=== PATIENT | female | born 1955 | race Caucasian/White ===

== ENCOUNTER 2020-06-23 12:28 | Outpatient (REF) | payer OTHER, SELFPAY | END 2020-06-23 12:29 | disposition home or self-care (01) | LOC: HO.LAB 12:28 | PROVIDERS: Visit Provider Internal Medicine | DX: Z20.822 Contact with and (suspected) exposure to COVID-19 (principal) | CPT/HCPCS: 36415; C9803; U0003 ==

== ENCOUNTER 2020-08-11 12:46 | Outpatient (REF) | payer OTHER, SELFPAY ==
--- NOTE | ~2020-08-11 | MM_ITS ---
EXAMINATION: MM SCREENING DIGITAL BREAST TOMOSYNTHESIS, BILATERAL CLINICAL INFORMATION: Screening. Asymptomatic. The lifetime risk of breast cancer based on the Tyrer-Cuzick Model is 4%. COMPARISON: Mammography: 08/06/2019, 03/29/2018, 01/26/2017 TECHNIQUE: Digital breast tomosynthesis is performed in both the craniocaudal and mediolateral oblique views along with computer-aided detection (CAD). Synthesized 2D images are generated from the tomosynthesis. FINDINGS: There are scattered areas of fibroglandular density (ACR BI-RADS breast composition Category b). There are no significant masses, abnormal calcifications, or other abnormalities. There is stable nodule posterior outer right breast, likely intraparenchymal node. There are some scattered benign calcifications and vascular calcifications. MM/MM tomosynthesis screening BI IMPRESSION: No mammographic evidence of malignancy. ASSESSMENT: BI-RADS 2: Benign RECOMMENDATION: Routine annual mammography screening. This patient's information was entered into a reminder system with a target due date for their next mammogram.
== END 2020-08-11 12:47 | disposition home or self-care (01) ==
LOC: HO.MAMMO 12:46
PROVIDERS: PCP Internal Medicine; Visit Provider Internal Medicine
DX: Z12.31 Encounter for screening mammogram for malignant neoplasm of breast (principal)
CPT/HCPCS: 77063; 77067

== ENCOUNTER 2021-04-16 11:15 | Outpatient (REF) | payer OTHER, SELFPAY | END 2021-04-16 11:16 | disposition home or self-care (01) | LOC: HO.LAB 11:15 | PROVIDERS: PCP Internal Medicine; Visit Provider Internal Medicine | DX: Z20.822 Contact with and (suspected) exposure to COVID-19 (principal) | CPT/HCPCS: C9803; U0003; U0005 ==

== ENCOUNTER 2021-08-10 14:16 | Outpatient (REF) | payer OTHER, SELFPAY ==
[2021-08-10 14:46] LABS: COVID-19 Test Negative (Negative); IDNOW Serial# 08D9AD1C
== END 2021-08-10 14:17 | disposition home or self-care (01) ==
LOC: HO.LAB 14:16
PROVIDERS: Visit Provider Internal Medicine
DX: Z20.822 Contact with and (suspected) exposure to COVID-19 (principal)
CPT/HCPCS: 87635; C9803

== ENCOUNTER 2021-08-28 11:10 | Emergency (ER) | payer OTHER, SELFPAY ==
[2021-08-28 11:25] VITALS: BP 151/95; PULSE 69; RESP 18; TEMP 37.1; O2SAT 100; BMI 29.5
--- NOTE | 2021-08-28 11:59 | ED.EXTPRO ---
HPI - Extremity Problem General Chief complaint: Extremity Injury, Upper Stated complaint: Bursitis L shoulder Time Seen by Provider: 08/28/21 11:59 Source: patient Mode of arrival: ambulatory Limitations: no limitations History of Present Illness HPI Narrative: Patient is a 65 year old female presenting to the emergency department today with left shoulder pain. Patient states that she has a history of bursitis and called her PCP for a joint injection but they told her they couldn't do it and she should come here. Patient denies any new injury to the area. Patient denies taking anything for the pain. Patient denies any numbness, tingling, dizziness, lightheadedness, abdominal pain, nausea, vomiting, fever, chills, blurry vision, double vision, loss of vision, chest pain, difficulty breathing, shortness of breath, back pain, night sweats, pain with urination, increased urinary frequency, increased urinary urgency, blood in her urine or stool, syncope or a near syncopal episode, recent trauma or falls, bowel incontinence, bladder incontinence, bowel retention, bladder retention, or any other complaints at this time. MD Complaint: joint pain Onset (ago): day(s) Pain Consistency: constant Location: left Severity scale (1-10): 3 Quality: dull Radiation: none Relieving factors: nothing Exacerbating factors: nothing Associated symptoms: denies other symptoms Related Data Allergies Allergy/AdvReac Type Severity Reaction Status Date / Time No Known Allergies Allergy Verified 08/28/21 11:25 Review of Systems Constitutional: Constitutional: Reports no additional constitutional complaints, Denies chills, Denies fever(s) and Denies night sweats Eyes: Eyes: Reports no additional eye complaints, Denies blurry vision, Denies change in vision, Denies diplopia, Denies eye discharge, Denies loss of vision and Denies eye pain ENT: Denies dizziness Cardiovascular: Cardiovascular: Reports no additional cardiovascular complaints, Denies chest pain, Denies lightheadedness, Denies Loss of Consciousness and Denies dyspnea Respiratory: Respiratory: Reports no additional respiratory complaints and Denies dyspnea Gastrointestinal: Gastrointestinal: Reports no additional gastrointestinal complaints, Denies abdominal pain, Denies melena, Denies hematochezia, Denies change in bowel habits and Denies change in stool character Genitourinary: Genitourinary: Denies hematuria, Denies urinary frequency, Denies dysuria, Denies urinary incontinence, Denies urinary hesitancy and Denies urinary urgency Musculoskeletal: Musculoskeletal: Reports no additional musculoskeletal complaints, Denies numbness and Denies tingling Comments: left shoulder pain Neurologic: Denies dizziness, Denies loss of vision, Denies numbness and Denies tingling Psychiatric: Psychiatric: Reports no additional psychiatric complaints Endocrine: Endocrine: Reports no additional endocrine complaints Hematologic/Lymphatic: Hematologic/Lymphatic: Reports no additional hematologic/lymphatic complaints Allergic/Immunologic: Allergic/Immunologic: Reports no additional allergic/immunologic complaints PMFSH Past Medical History Attestation statement: The following information was validated with the patient. Source: old records reviewed Social History Social History Advance Directives: No Physical Exam Vital Signs: Vital Signs: Last Vital Signs Temp 98.7 F 08/28/21 11:25 Pulse 69 08/28/21 11:25 Resp 18 08/28/21 11:25 BP 151/95 H 08/28/21 11:25 Pulse Ox 100 08/28/21 11:25 BMI result Body Mass Index 29.5 Const: General: cooperative, no acute distress, alert and awake Nutritional Appearance: well nourished Orientation/consciousness: patient oriented x3 Limitations: no limitations HEENT: Head: Yes normal to inspection and Yes atraumatic Ears: hearing grossly normal bilaterally and external ears normal General nose exam: Normal external nose present, no nasal discharge noted and no epistaxis Face and sinus: Yes normal facial exam, No abrasion and No laceration Mouth: Normal oral and palatal mucosa present, no drooling and no muffled voice Eyes: General: appearance normal, both eyes and all related structures Periorbital: periorbital findings normal Eyelids: Yes eyelids normal Conjunctivae: conjunctivae normal Pupils: Equal, round and reactive pupils present EOM: EOMs intact bilaterally Neck: Neck: Yes normal visual inspection, Yes full ROM and Yes no lymphadenopathy Chest: Chest palpation & inspection: normal inspection of the chest Resp: Effort & Inspection: normal respiratory effort and able to speak in complete sentences Auscultation: clear to auscultation bilaterally Cardio: Rate: regular rate Rhythm: regular rhythm GI: Inspection: Yes normal to inspection Neuro: General: patient oriented x3 and moves all extremities Cranial nerves: Yes Equal, round and reactive pupils present Cognition (Neuro): normal cognition Motor exam (neuro): 5/5 motor strength present throughout Sensory Exam: Normal double simultaneous stimulation for sensation Coordination: [id number] test normal Extrem: General: Yes normal to inspection, Yes full ROM and Yes capillary refill normal Psych: Appearance: grossly normal Mental Status: mental status grossly normal Affect: normal affect Attitude: cooperative Thought process: Normal thought process present Thought content: Normal thought content present Insight: Good insight present (Psych) MDM - Extremity (Nontraumatic) MDM Narrative Medical decision making narrative: Patient is a 65 year old female presenting to the emergency department today with left shoulder pain. Patient's physical exam was unremarkable. Patient's ROM, circulation, strength, and sensation were intact to the entire left upper extremity. I explained my physical exam findings to the patient. I answered all questions asked by the patient. I spoke to the orthopedic PA Cindy who stated they did not have space in their schedule to perform a cortisone injection. She recommended the patient take OTC Tylenol and follow up outpatient. I stressed the importance of the patient taking her medication as prescribed. I stressed the importance of the patient following up with her primary care provider and an orthopedist. I stressed the importance of the patient returning to the emergency department immediately if her symptoms were to worsen or if she were to develop any dizziness, shortness of breath, difficulty breathing, chest pain, blurry vision, loss of vision, nausea, vomiting, abdominal pain, fever, chills, back pain, or any other complaints. Patient verbalized agreement and understanding with this treatment plan and discharge. Differential Diagnosis Differential diagnosis: Unlikely gout (shoulder pain, burisitis) Medical Records Attestation: I reviewed the patient's medical records. Discharge Plan Discharge Clinical Impression: Bursitis Patient Disposition: Home, Self-Care Instructions: Shoulder Bursitis (ED) Additional Instructions: Take Tylenol for the pain. Do NOT sling the arm or restrict movement, this could lead to a frozen shoulder. Follow up with your primary care provider. Return to the emergency department immediately if your symptoms worsen or if you develop any dizziness, shortness of breath, difficulty breathing, chest pain, blurry vision, loss of vision, nausea, vomiting, abdominal pain, fever, chills, back pain, or any other complaints. Referrals: Bassem Otero III, MD [Primary Care Provider] - 2 days Davi Whelan MD [Physician] - 2 days Interventions: ED Discharge Assessment Last Done: 08/28/21 12:34 Print Language: Yakut
== END 2021-08-28 12:35 | disposition home or self-care (01) ==
PROVIDERS: Emergency Provider Emergency Medicine; PCP Internal Medicine
DX: M75.52 Bursitis of left shoulder (principal); M25.512 Pain in left shoulder
CPT/HCPCS: 99282; 99283

== ENCOUNTER 2021-12-25 05:13 | Emergency (ER) | payer OTHER, SELFPAY ==
--- NOTE | 2021-12-25 | ECG_ITS ---
Test Reason : HIGH BP Blood Pressure : / mmHG Vent. Rate : 068 BPM Atrial Rate : 068 BPM P-R Int : 162 ms QRS Dur : 076 ms QT Int : 418 ms P-R-T Axes : 000 004 034 degrees QTc Int : 444 ms Normal sinus rhythm Normal ECG When compared with ECG of 09-NOV-2017 09:40, No significant change was found Referred By: Generic ED Physician Electronically Signed By:CAMRYN CORTEZ
--- NOTE | ~2021-12-25 | XR_ITS ---
EXAMINATION: XR CHEST CLINICAL INFORMATION: Cough COMPARISON: 11/09/2017 TECHNIQUE: Frontal view of the chest was obtained. FINDINGS: Normal symmetric lung volumes. No parenchymal consolidation. No pleural effusion. No pneumothorax. Cardiomediastinal silhouette and pulmonary vascularity are within normal limits. Aorta is tortuous and atherosclerotic. No acute osseous abnormalities. XR/XR chest 1V IMPRESSION: No acute findings
[2021-12-25 05:33] VITALS: BP 219/122; PULSE 71; RESP 18; TEMP 36.7; O2SAT 97; BMI 32.7
[2021-12-25 05:35] VITALS: BP 201/89
[2021-12-25 05:52] LABS: Strep A Nucleic Acid Negative (Negative)
[2021-12-25 06:03] LABS: COVID-19 Test Negative (Negative); IDNOW Serial# 16C4AD1C; Influenza A Negative (Negative); Influenza B2 Negative (Negative)
[2021-12-25 06:08] VITALS: O2SAT 98
--- NOTE | 2021-12-25 06:18 | PC.NURSE ---
Pt. with HTN d/t not taking home meds. Reviewed pt.'s exernal med. list and passed on to Angelo Pan MD to re-order home meds.
--- NOTE | 2021-12-25 07:46 | ED_ITS ---
HPI - General Adult General Chief complaint: Upper Respiratory Symptoms Stated complaint: sore throat, unable to swalloq, ear pain Time Seen by Provider: 12/25/21 07:42 Source: patient Mode of arrival: ambulatory History of Present Illness HPI narrative: 66-year-old female with history hypertension presents with 1 week of nasal congestion, sore throat, cough as well as bilateral ear discomfort and watery eyes. Otherwise, she denies any fever, chills, GI or symptoms denies any chest pain/palpitations, or shortness of breath. Related Data Allergies Allergy/AdvReac Type Severity Reaction Status Date / Time No Known Allergies Allergy Verified 12/25/21 05:32 Review of Systems Review of Systems: Pertinent positives and negatives as stated in HPI 10 point review of systems is otherwise negative. PMFSH Past Medical History Source: nursing notes reviewed Social History Social History Alcohol intake: never Patient Tobacco Use Status: Never used Tobacco Use of substances other than those prescribed or required for medical reasons: No Advance Directives: No Advance Directives Information Provided: Yes Physical Exam ED Vital Signs: Vital Signs - 24 hr 12/25/21 05:33 12/25/21 05:35 12/25/21 06:08 Temperature 98.1 F Pulse Rate 71 Respiratory Rate 18 Blood Pressure 219/122 H 201/89 H Pulse Oximetry 97 98 Oxygen Delivery Method Room Air Room Air BMI result Body Mass Index 32.7 VITAL SIGNS: Reviewed. GENERAL: Well developed, well nourished, in no acute distress. HEAD: Normocephalic/atraumatic EYES: PERRLA, EOMI, bilateral conjunctival injection, clear watery EARS: Ext canals without abnormality, TMs non-bulging and non-erythematous NOSE: Nares congestion with bilateral boggy turbinates OROPHARYNX: no oral lesions noted, posterior pharynx clear and erythematous without noted tonsillar enlargement/erythema/exudates NECK: Supple, no adenopathy LUNGS: Normal breath sounds. No adventitious sounds or accessory muscle use. SpO2<97> CARDIOVASCULAR: Regular rate and rhythm without noted murmurs, no JVD or lower extremity edema. ABDOMEN: Soft, non-tender, non-distended with bowel sounds. MUSCULOSKELETAL: No tenderness, deformities, or effusions noted on gross inspection. EXTREMITIES: No cyanosis, clubbing or edema. SKIN: Inspection of the skin reveals no rashes NEUROLOGIC: Alert and oriented x 4. Strength and sensation to light touch were grossly intact x 4. Course Course Course Narrative: 66-year-old female with history and clinical presentation suggestive of allergic rhinitis with postnasal drip and possible combination of viral syndrome. Patient is also noted to be hypertensive in on review of all investigations there are no acute findings. Patient received Cepacol for her sore throat as well as 5 mg of Norvasc for her blood pressure. On re-evaluation patient reports significant improvement of her throat symptoms with the Cepacol. Medical Decision Making Lab Data Result diagrams: 12/25/21 07:59 12/25/21 07:59 Labs: Lab Results 12/25/21 12/25/21 12/25/21 Range/Units 05:34 05:34 05:34 WBC (4.8-10.8) X10*3/uL RBC (4.20-5.50) X10*6/uL Hgb (12.0-16.0) g/dl Hct (37.0-47.0) % MCV (80.0-98.0) fL MCH (27.0-33.0) pg MCHC (31.0-35.0) g/dl RDW (11.0-16.0) % Plt Count (160-400) X10*3/uL MPV (9.4-12.3) fL Immature Gran % (Auto) (0.0-0.4) % Neut % (Auto) (45-73) % Lymph % (Auto) (20-40) % Cecil % (Auto) (2-11) % Eos % (Auto) (0-4) % Baso % (Auto) (0-2) % Lymph # (Auto) (1.2-4.9) X10*3/uL Cecil # (Auto) (0.1-1.2) X10*3/uL Eos # (Auto) (0.0-0.4) X10*3/uL Baso # (Auto) (0.0-0.2) X10*3/uL Abs Immat Gran (auto) (0.00-0.03) X10*3/uL Absolute Neuts (auto) (2.0-8.3) x10*3/uL Absolute Nucleated RBC (0.0-0.012) X10*3/uL Nucleated RBC % (auto) (0.0-0.2) /100WBC Sodium (135-145) mmol/L Potassium (3.3-5.1) mmol/L Chloride (96-108) mmol/L Carbon Dioxide (22-29) mmol/L Anion Gap (12-20) BUN (9-16) mg/dL Creatinine (0.5-1.4) mg/dL Estim Creat Clear Calc Estimated GFR Random Glucose (60-115) mg/dL Calcium (8.4-10.2) mg/dL Total Bilirubin (0.0-1.0) mg/dL AST (5-31) U/L ALT (0-31) U/L Alkaline Phosphatase (39-117) U/L Total Protein (6.5-8.0) g/dL Albumin (3.5-5.0) g/dL COVID-19 (ASIA) Negative (Negative) COVID-19 Clin Com See Note Influenza Type A (LAEX) Negative (Negative) Influenza Type B (ALEX) Negative (Negative) Influenza A & B Note See Note S. pyogenes GrpA ALEX Negative (Negative) 12/25/21 12/25/21 Range/Units 07:59 07:59 WBC 6.8 (4.8-10.8) X10*3/uL RBC 4.70 (4.20-5.50) X10*6/uL Hgb 13.6 (12.0-16.0) g/dl Hct 41.6 (37.0-47.0) % MCV 88.5 (80.0-98.0) fL MCH 28.9 (27.0-33.0) pg MCHC 32.7 (31.0-35.0) g/dl RDW 14.2 (11.0-16.0) % Plt Count 252 (160-400) X10*3/uL MPV 9.1 L (9.4-12.3) fL Immature Gran % (Auto) 0.4 (0.0-0.4) % Neut % (Auto) 65.0 (45-73) % Lymph % (Auto) 25.3 (20-40) % Cecil % (Auto) 5.6 (2-11) % Eos % (Auto) 3.1 (0-4) % Baso % (Auto) 0.6 (0-2) % Lymph # (Auto) 1.7 (1.2-4.9) X10*3/uL Cecil # (Auto) 0.4 (0.1-1.2) X10*3/uL Eos # (Auto) 0.2 (0.0-0.4) X10*3/uL Baso # (Auto) 0.0 (0.0-0.2) X10*3/uL Abs Immat Gran (auto) 0.03 (0.00-0.03) X10*3/uL Absolute Neuts (auto) 4.4 (2.0-8.3) x10*3/uL Absolute Nucleated RBC 0.000 (0.0-0.012) X10*3/uL Nucleated RBC % (auto) 0.0 (0.0-0.2) /100WBC Sodium 141 (135-145) mmol/L Potassium 4.1 (3.3-5.1) mmol/L Chloride 104 (96-108) mmol/L Carbon Dioxide 28 (22-29) mmol/L Anion Gap 13 (12-20) BUN 11 (9-16) mg/dL Creatinine 0.81 (0.5-1.4) mg/dL Estim Creat Clear Calc 58.8 Estimated GFR > 60 Random Glucose 106 (60-115) mg/dL Calcium 8.8 (8.4-10.2) mg/dL Total Bilirubin 0.4 (0.0-1.0) mg/dL AST 13 (5-31) U/L ALT 10 (0-31) U/L Alkaline Phosphatase 75 (39-117) U/L Total Protein 7.1 (6.5-8.0) g/dL Albumin 4.0 (3.5-5.0) g/dL COVID-19 (ASIA) (Negative) COVID-19 Clin Com Influenza Type A (ALEX) (Negative) Influenza Type B (ALEX) (Negative) Influenza A & B Note S. pyogenes GrpA ALEX (Negative) ECG Data Attestation: I personally reviewed and interpreted this ECG as follows: Prior ECG tracings: available for review Interpretation: Normal sinus rhythm, HR-68, no STEMI, IL/QRS/QTC is within normal limits. Discharge Plan Discharge Clinical Impression: Upper respiratory infection, Sinusitis, Hypertension Patient Disposition: Home, Self-Care Instructions: Hypertension (ED), DASH Eating Plan (ED), Rhinosinusitis (ED), Upper Respiratory Infection (ED) Additional Instructions: 1. Recommend eikz-umy-ediooff Tylenol/ibuprofen as needed for any body aches or pains as well as headache. Increase fluid hydration especially with water. 2. Recommend trying vpxx-ark-[id number] allergy medications such as Claritin/Flonase. 3. Recommend auws-[id number]-uwmtryk Cepacol for your sore throat as well as using saline gargling (warm tap water mixed with table salt), gargle for 5 minutes 3 to 4 times a day. 4. Contact the office of your primary care provider today for refill on your blood pressure medication. Return to the ER for worsening symptoms. Referrals: Bassem Otero III, MD [Primary Care Provider] -
[2021-12-25] MEDS: Acetaminophen 325 MG TABLET 975 MG PO (07:50)
[2021-12-25] MEDS: amLODIPine Besylate 5 MG TABLET PO (07:50)
[2021-12-25] MEDS: Ibuprofen 400 MG TABLET PO (07:51)
[2021-12-25 08:04] LABS: MANUAL DIFF FLAG NO
[2021-12-25 08:10] LABS: Basophils Percent Auto 0.6 % (0-2); Eosinophils Absolute Auto 0.2 X10*3/uL (0.0-0.4); Eosinophils Percent Auto 3.1 % (0-4); Hematocrit 41.6 % (37.0-47.0); Hemoglobin 13.6 g/dl (12.0-16.0); Imm Gran Abs Auto 0.03 X10*3/uL (0.00-0.03); Imm Gran Pct Auto 0.4 % (0.0-0.4); Lymphocytes Absolute Auto 1.7 X10*3/uL (1.2-4.9); Lymphocytes Percent Auto 25.3 % (20-40); Mean Corpuscular HGB Conc 32.7 g/dl (31.0-35.0); Mean Corpuscular Hemoglobin 28.9 pg (27.0-33.0); Mean Corpuscular Volume 88.5 fL (80.0-98.0); Mean Platelet Volume 9.1 fL (9.4-12.3); Monocytes Absolute Auto 0.4 X10*3/uL (0.1-1.2); Monocytes Percent Auto 5.6 % (2-11); Neutrophils Absolute Auto 4.4 x10*3/uL (2.0-8.3); Platelet Count 252 X10*3/uL (160-400); Red Cell Distribution Width 14.2 % (11.0-16.0); White Blood Count 6.8 X10*3/uL (4.8-10.8)
[2021-12-25 08:25] LABS: Alanine Aminotransferase 10 U/L (0-31); Alkaline Phosphatase 75 U/L (39-117); Anion Gap 13 (12-20); Aspartate Amino Transferase 13 U/L (5-31); Bilirubin Total 0.4 mg/dL (0.0-1.0); Blood Urea Nitrogen 11 mg/dL (9-16); Calcium 8.8 mg/dL (8.4-10.2); Carbon Dioxide 28 mmol/L (22-29); Chloride 104 mmol/L (96-108); Creatinine Clr Calc Pharmacy 58.8; Estimated Glomerular Filt Rate > 60; Glucose Random 106 mg/dL (60-115); Potassium 4.1 mmol/L (3.3-5.1); Sodium 141 mmol/L (135-145); Total Protein 7.1 g/dL (6.5-8.0)
[2021-12-25 09:59] VITALS: BP 177/81; PULSE 62
== END 2021-12-25 10:04 | disposition home or self-care (01) ==
PROVIDERS: Emergency Provider Student in an Organized Health Care Education/Training Program; PCP Internal Medicine
DX: J06.9 Acute upper respiratory infection, unspecified (principal); J32.9 Chronic sinusitis, unspecified; I10 Essential (primary) hypertension; J02.9 Acute pharyngitis, unspecified; Z20.822 Contact with and (suspected) exposure to COVID-19
CPT/HCPCS: 36415; 71045; 80053; 85025; 87502; 87635; 87651; 93005; 99283; 99285

== ENCOUNTER 2023-10-22 13:38 | Inpatient (IN) | payer MEDICARE, OTHER, SELFPAY ==
[2023-10-22] VITALS (8 sets, daily range): BP systolic 174–231; BP diastolic 89–111; PULSE 63–93; RESP 15–18; TEMP 36.9; O2SAT 97–100; BMI 34.8
--- NOTE | ~2023-10-22 | XR_ITS ---
EXAMINATION: XR CHEST CLINICAL INFORMATION: Chest pain COMPARISON: Prior chest November 2021 TECHNIQUE: 2 views of the chest were obtained. FINDINGS: No significant abnormality is noted involving the heart, lungs, mediastinum, bony thorax or soft tissues. XR/XR chest 2V IMPRESSION: Unremarkable examination.
--- NOTE | ~2023-10-22 | CT_ITS ---
EXAMINATION: CT HEAD WITHOUT CONTRAST CLINICAL INFORMATION: Headache COMPARISON: CT head October 2009 TECHNIQUE: Contiguous axial imaging was performed from the skull base to vertex without intravenous administration of contrast. This CT examination was performed using dose optimization techniques as appropriate, variously including the following: *Automated exposure control *Adjustment of mA and/or kV according to patient size (this includes techniques or standardized protocols for targeted exams where dose is matched to indication/reason for exam; i.e. extremities or head) *Use of iterative reconstruction technique DLP: 580 mGy-cm FINDINGS: There is no mass hemorrhage or cerebral edema. Ventricles and basal cisterns normal. Bone and soft tissues normal. Sinuses clear. Mastoid air cells clear. CT/CT head/brain wo IV con IMPRESSION: No acute intracranial pathology.
--- NOTE | 2023-10-22 13:59 | ED.GENADULT ---
HPI - General Adult General Chief complaint: Chest Pain Stated complaint: high bp Time Seen by Provider: 10/22/23 18:09 Source: patient Mode of arrival: ambulatory Limitations: no limitations History of Present Illness HPI narrative: Patient's history of arthritis no history of hypertension been having mild headache and not feeling well had a cortisone shot in her right knee 3 days ago at that time blood pressure was slightly elevated in 150/90s today she was visiting her family at skilled nursing and noticed similar feeling had a blood pressure check was in 200/110 range after arrival patient's blood pressure 205/91 for last few hours patient also feeling chest tightness and heaviness prior to this patient has normal blood pressure not taking any pain medication significant family history of hypertension present according to records patient has elevated blood pressure last year also but never been started on medication as blood pressure got better also patient felt chest tightness no diaphoresis no shortness a breath Related Data Home Medications ?Medication ?Instructions ?Recorded ?Confirmed clobetasol 0.05 % topical foam 1 appl topical QD-BID PRN Itching 10/23/23 10/23/23 fluticasone propionate 50 2 spray intranasal DAILY PRN 10/23/23 10/23/23 mcg/actuation nasal Allergy Symptoms spray,suspension loratadine 10 mg tablet 10 mg PO DAILY PRN Allergy Symptoms 10/23/23 10/23/23 omeprazole 40 mg capsule,delayed 40 mg PO DAILY PRN Acid Reflux 10/23/23 10/23/23 release zolpidem 5 mg tablet 5 mg PO BEDTIME insomnia 10/23/23 10/23/23 Previous Rx's ?Medication ?Instructions ?Recorded amlodipine 5 mg tablet 5 mg PO DAILY #30 tabs 10/23/23 blood pressure monitor #1 ea 10/23/23 losartan 50 mg tablet 50 mg PO DAILY #30 tabs 10/23/23 Allergies Allergy/AdvReac Type Severity Reaction Status Date / Time No Known Allergies Allergy Verified 10/22/23 14:02 Review of Systems Review of Systems: Yes all other systems are reviewed and are negative [facility] Past Medical History Medical History (Updated 10/23/23 @ 01:33 by Julian Aldana MD) Insomnia Osteoarthritis of right knee Social History Social History Alcohol intake: never Patient Tobacco Use Status: Never used Tobacco Physical Exam ED Vital Signs: Vital Signs - 24 hr 10/22/23 13:59 10/22/23 18:08 10/22/23 18:36 Temperature 98.4 F Pulse Rate 74 63 Respiratory Rate 18 16 Blood Pressure 205/91 H 218/106 H 231/111 H Pulse Oximetry 100 98 Oxygen Delivery Method Room Air Room Air 10/22/23 18:37 10/22/23 19:21 Temperature Pulse Rate 71 93 Respiratory Rate 15 Blood Pressure 231/111 H 208/103 H Pulse Oximetry 97 Oxygen Delivery Method Room Air BMI result Body Mass Index 34.8 Appearance: Alert. Oriented X3. No acute distress. Eyes: No pallor or icterus ENT: Pharynx normal. Oral Mucosa moist Neck: Normal inspection. Neck supple. CVS: Normal heart rate and rhythm. Pulses normal. Respiratory: No respiratory distress. Equal air entry bilateral, no wheezing/rales/rhonchi Abdomen: Soft and nontender. Bowel sounds are present, no mass palpable, no CVA tenderness Skin: Skin warm and dry. Normal skin color. Normal skin turgor. Extremities: No lower extremity edema. No calf tenderness Neuro: Oriented X 3. No motor deficit. No sensory deficit.No cerebellar signs , cranial nerves II-XII intact Course Course Course Narrative: This is an RME: Additional HPI, ROS, PE not included below will be deferred to primary provider. RME assessment and note performed by: Sandrine Banks PA-C This is a 69-wslw-enl-female, with a hx of HTN, who presents to the ER with complaints of substernal chest pain and headache since this morning. Endorsing SOB. BP 205/91. Plan: Labs,EKG, UA, further ER eval needed. Medications Administered Discontinued Medications Generic Name Dose Route Start Last Admin Trade Name Freq PRN Reason Stop Dose Admin Amlodipine Besylate 5 mg 10/23/23 09:00 10/23/23 09:41 Amlodipine Besylate 5 Mg Tablet PO 5 mg DAILY LOUISE Administration Protocol Amlodipine Besylate 5 mg 10/22/23 20:13 10/22/23 20:51 Amlodipine Besylate 5 Mg Tablet PO 10/22/23 20:14 5 mg ONCE ONE Administration Protocol Enoxaparin Sodium 40 mg 10/22/23 20:00 10/22/23 20:51 Enoxaparin Sodium 40 Mg/0.4 Ml Syringe SUBCUT 40 mg Q24H LOUISE Administration Labetalol HCl 20 mg 10/22/23 18:21 10/22/23 18:37 Labetalol Hcl 100 Mg/20 Ml Vial IVPUSH 10/22/23 18:22 20 mg ONCE ONE Administration Losartan Potassium 50 mg 10/22/23 18:21 10/22/23 18:36 Losartan Potassium 50 Mg Tablet PO 10/22/23 18:22 50 mg ONCE ONE Administration Protocol Losartan Potassium 50 mg 10/23/23 09:00 10/23/23 09:41 Losartan Potassium 50 Mg Tablet PO 50 mg DAILY LOUISE Administration Protocol Sodium Chloride 3 ml 10/23/23 00:00 10/23/23 07:54 0.9 % Sodium Chloride Flush 3 Ml Syringe IVFLUSH Not Given QSHIFT [facility] Medical Decision Making Medical Decision Making [facility] Narrative: Patient with uncontrolled hypertension with similar history in the past never been on medication patient has required IV labetalol p.o. losartan will add pressure improved 2 sets of cardiac enzymes negative ACS CT scan head is negative for SAH will admit patient to medical service blood pressure Differential Diagnosis Differential Diagnoses: The differential diagnosis associated with the presentation includes Accelerated hypertension/chest pain/ACS/SDH/SAH Admission/Observation Consideration of admission/observation: Escalation of care including admission/observation considered Consult Healthcare Provider Management of the patient was discussed with: Hospitalist Lab Data [facility] Lab Attestation statement: I reviewed the patient's lab results. 10/23/23 05:44 10/23/23 05:44 Labs: Lab Results 10/22/23 10/22/23 10/22/23 Range/Units 14:23 14:24 18:29 WBC 10.0 (4.8-10.8) X10*3/uL RBC 4.74 (4.20-5.50) X10*6/uL Hgb 13.9 (12.0-16.0) g/dl Hct 40.5 (37.0-47.0) % MCV 85.4 (80.0-98.0) fL MCH 29.3 (27.0-33.0) pg MCHC 34.3 (31.0-35.0) g/dl RDW 13.6 (11.0-16.0) % Plt Count 268 (160-400) X10*3/uL MPV 9.4 (9.4-12.3) fL Immature Gran % (Auto) 0.5 H (0.0-0.4) % Neut % (Auto) 81.9 H (45-73) % Lymph % (Auto) 13.6 L (20-40) % [place] % (Auto) 3.9 (2-11) % Eos % (Auto) 0.0 (0-4) % Baso % (Auto) 0.1 (0-2) % Lymph # (Auto) 1.4 (1.2-4.9) X10*3/uL [place] # (Auto) 0.4 (0.1-1.2) X10*3/uL Eos # (Auto) 0.0 (0.0-0.4) X10*3/uL Baso # (Auto) 0.0 (0.0-0.2) X10*3/uL Abs Immat Gran (auto) 0.05 H (0.00-0.03) X10*3/uL Absolute Neuts (auto) 8.2 (2.0-8.3) x10*3/uL Absolute Nucleated RBC 0.000 (0.0-0.012) X10*3/uL Nucleated RBC % (auto) 0.0 (0.0-0.2) /100WBC PT 10.8 L (11.1-13.3) SEC INR 0.9 (0.9-1.1) APTT 27.1 (26.0-36.8) SEC D-Dimer High Sensitivty < 150 NG/ML Sodium 135 (135-145) mmol/L Potassium 3.8 (3.3-5.1) mmol/L Chloride 99 (96-108) mmol/L Carbon Dioxide 26 (22-29) mmol/L Anion Gap 14 (12-20) BUN 22 H (9-16) mg/dL Creatinine 0.87 (0.5-1.4) mg/dL Estim Creat Clear Calc 55.1 Estimated GFR > 60 Random Glucose 94 (60-115) mg/dL Calcium 9.4 D (8.4-10.2) mg/dL Magnesium 2.2 (1.6-2.6) mg/dL Total Bilirubin 0.5 (0.0-1.0) mg/dL Direct Bilirubin 0.2 (0.0-0.5) mg/dL AST 14 (5-31) U/L ALT 16 (0-31) U/L Alkaline Phosphatase 60 (39-117) U/L Troponin I High Sens < 2.7 < 2.7 (<3.5-17.0) ng/L Total Protein 7.5 (6.5-8.0) g/dL Albumin 4.2 (3.5-5.0) g/dL Lipase 23 (8-78) U/L Independent Interpretation I performed an independent interpretation of an: EKG Interpretation: Normal sinus rhythm heart rate 69 beats per minute normal interval normal axis no acute ST T wave changes no acute ischemia impression normal EKG Critical Care Time Critical Care Time Critical Care Time: Yes Total Critical Care Time: 55 Attestation: The patient was critically ill with a high probability of imminent or life threatening deterioration. I spent greater than ?60??minutes of discontinuous time evaluating the patient,delivering critical care at the bedside, discussing and evaluating pertinent data with consultants. Critical care time does not include time spent performing separately billable procedures or teaching. Total time spent performing critical care was 55???minutes. Discharge Plan Discharge Clinical Impression: Hypertensive urgency, Chest pain Patient Disposition: Home, Self-Care Discharge Date/Time: 10/23/23 11:39
--- NOTE | 2023-10-22 14:01 | ECG_ITS ---
Test Reason : CP Blood Pressure : / mmHG Vent. Rate : 069 BPM Atrial Rate : 069 BPM P-R Int : 168 ms QRS Dur : 076 ms QT Int : 394 ms P-R-T Axes : 059 008 026 degrees QTc Int : 422 ms Normal sinus rhythm Normal ECG When compared with ECG of 25-DEC-2021 05:37, T wave amplitude has increased in Anterior leads Referred By: Sandrine Banks Electronically Signed By:Balaji Hernandez
[2023-10-22 14:28] LABS: Basophils Percent Auto 0.1 % (0-2); Hematocrit 40.5 % (37.0-47.0); Hemoglobin 13.9 g/dl (12.0-16.0); Imm Gran Abs Auto 0.05 X10*3/uL (0.00-0.03); Imm Gran Pct Auto 0.5 % (0.0-0.4); Lymphocytes Absolute Auto 1.4 X10*3/uL (1.2-4.9); Lymphocytes Percent Auto 13.6 % (20-40); MANUAL DIFF FLAG NO; Mean Corpuscular HGB Conc 34.3 g/dl (31.0-35.0); Mean Corpuscular Hemoglobin 29.3 pg (27.0-33.0); Mean Corpuscular Volume 85.4 fL (80.0-98.0); Mean Platelet Volume 9.4 fL (9.4-12.3); Monocytes Absolute Auto 0.4 X10*3/uL (0.1-1.2); Monocytes Percent Auto 3.9 % (2-11); Neutrophils Absolute Auto 8.2 x10*3/uL (2.0-8.3); Neutrophils Percent Auto 81.9 % (45-73); Platelet Count 268 X10*3/uL (160-400); Red Blood Count 4.74 X10*6/uL (4.20-5.50); Red Cell Distribution Width 13.6 % (11.0-16.0)
[2023-10-22 14:42] LABS: Alanine Aminotransferase 16 U/L (0-31); Albumin Level 4.2 g/dL (3.5-5.0); Alkaline Phosphatase 60 U/L (39-117); Anion Gap 14 (12-20); Aspartate Amino Transferase 14 U/L (5-31); Bilirubin Direct 0.2 mg/dL (0.0-0.5); Bilirubin Total 0.5 mg/dL (0.0-1.0); Blood Urea Nitrogen 22 mg/dL (9-16); Calcium 9.4 mg/dL (8.4-10.2); Carbon Dioxide 26 mmol/L (22-29); Chloride 99 mmol/L (96-108); Creatinine Clr Calc Pharmacy 55.1; Estimated Glomerular Filt Rate > 60; Glucose Random 94 mg/dL (60-115); Lipase 23 U/L (8-78); Magnesium 2.2 mg/dL (1.6-2.6); Potassium 3.8 mmol/L (3.3-5.1); Sodium 135 mmol/L (135-145); Total Protein 7.5 g/dL (6.5-8.0)
[2023-10-22 14:49] LABS: Troponin-I High Sensitivity < 2.7 ng/L (<3.5-17.0)
[2023-10-22] MEDS: Losartan Potassium 50 MG TABLET PO (18:36)
[2023-10-22] MEDS: Labetalol HCL 100 MG/20 ML VIAL 20 MG IVPUSH (18:37)
[2023-10-22 18:45] LABS: INTERNATIONAL NORM RATIO 0.9 (0.9-1.1); Prothrombin Time 10.8 SEC (11.1-13.3)
[2023-10-22 18:48] LABS: Partial Thromboplastin Time 27.1 SEC (26.0-36.8)
[2023-10-22 18:55] LABS: Troponin-I High Sensitivity < 2.7 ng/L (<3.5-17.0)
--- NOTE | 2023-10-22 19:15 | PC.NURSE ---
IV established, medicated per the MAR. alert and oriented, respirations even and unlabored. call sr within reach
--- NOTE | 2023-10-22 19:29 | PC.NURSE ---
pt is axox4 resting in stretcher. bp 208/103 Dr. Aldana made aware. pt reports cp 01/06 substernal without radiation, denies other sx/pain. nsr on monitor. awaiting further orders. call sr within reach.
[2023-10-22 20:35] LABS: D Dimer High Sensitivity < 150 NG/ML
--- NOTE | 2023-10-22 20:43 | P.HPHOSP_ITS ---
History of Present Illness Date of Service: 10/22/23 Attending physician on admission: Babak Clark Chief Complaint: Headache, chest pain Pt is a 68-year-old female with a PMH significant for?insomnia and osteoarthritis in right knee who presents to the ED for evaluation of headache, chest pain, lightheadedness, and dizziness. Patient reports symptoms began 3 days prior on Tuesday when she went to Orthopedics for a cortisone shot in her right knee. At the office they noticed her blood pressure was high. On patient felt diaphoretic, had a headache, some lightheadedness and dizziness, and central chest pressure. Symptoms persisted but did not repeat her BP until earlier today when she visited her mother at a assisted and asked the nurse to check it. Found that it was 179/100. Repeat one hour later was 197/100. Called Urgent Care who told her to come to the ED for further evaluation. Patient reports she follows regularly with a PCP. States a few years ago blood pressure was also found to be elevated and she was started medication. Reports blood pressure improved on medication, though prescription apparently was never refilled and patient thought her hypertension had been resolved. In the ED pt was hypertensive up to 231/111. Labs were grossly unremarkable. No leukocytosis. Stable H&H. No significant electrolyte abnormalities. Renal and hepatic function WNL. Serial troponins negative. CXR was unremarkable with no acute cardiopulmonary disease visualized. CT?of head showed no acute intracranial pathology. EKG demonstrated normal sinus rhythm without evidence of significant ST elevations or depressions. Pt was treated with labetalol 20 mg IV and losartan 50 mg p.o. Pt will be admitted to the hospital for treatment further evaluation of hypertensive urgency. Review of Systems 2 Review of Systems: Headache Central nonradiating chest pressure Lightheadedness, dizziness Diaphoresis Denies fever, chills, nausea, vomiting, abdominal pain No shortness of or difficulty breathing [facility] Medical History (Updated 10/22/23 @ 21:33 by AWA Bird) Insomnia Osteoarthritis of right knee Social History Alcohol intake: never Patient Tobacco Use Status: Never used Tobacco Smoked in Last 30 Days: No Use of substances other than those prescribed or required for medical reasons: No Advance Directives: No Advance Directives Information Provided: No Meds Allergies Allergy/AdvReac Type Severity Reaction Status Date / Time No Known Allergies Allergy Verified 10/22/23 14:02 Active Medications: Current Medications Acetaminophen (Acetaminophen 325 Mg Tablet) 650 mg PO Q6H PRN PRN Reason: Pain, Mild (Pain Scale 1-3) Amlodipine Besylate (Amlodipine Besylate 5 Mg Tablet) 5 mg PO DAILY LOUISE; Protocol Enoxaparin Sodium (Enoxaparin Sodium 40 Mg/0.4 Ml Syringe) 40 mg SUBCUT Q24H LOUISE Losartan Potassium (Losartan Potassium 50 Mg Tablet) 50 mg PO DAILY LOUISE; Protocol Melatonin (Melatonin 3 Mg Tablet) 6 mg PO BEDTIME PRN PRN Reason: Insomnia Ondansetron HCl (Ondansetron Hcl 4 Mg/2 Ml Vial) 4 mg IVPUSH Q8H PRN PRN Reason: Nausea and Vomiting Sodium Chloride (0.9 % Sodium Chloride Flush 3 Ml Syringe) 3 ml IVFLUSH QSHIFT LOUISE Physical Exam 2 Vital Signs and Narrative: Vital Signs: Last Vital Signs Temp 98.4 F 10/22/23 13:59 Pulse 70 10/22/23 20:13 Resp 16 10/22/23 20:13 BP 174/89 H 10/22/23 20:13 Pulse Ox 98 10/22/23 20:13 O2 Del Method Room Air 10/22/23 20:13 BMI result Body Mass Index 34.8 Constitutional: Alert, in no acute distress. Mental Status: Oriented to person, place and time. Eyes: Pupils are equal, round, and reactive to light. Ear, Nose, and Throat: Oropharynx clear, mucous membranes moist. Ears and nose without deformities. Trachea midline. Respiratory: Clear to auscultation bilaterally. No wheezing, rales, or rhonchi. Cardiovascular: S1, S2 regular. No murmurs, rubs, or gallops. Gastrointestinal: Abdomen soft, non-tender, non-distended. Normal bowel sounds. Neurologic: Cranial nerves II-XII are grossly intact bilaterally. No focal neurological deficits. Moves all extremities spontaneously. Skin: Warm, dry. Extremities: No edema. Psychiatric: Normal mood and affect. Results Labs 10/22/23 14:23 10/22/23 14:23 Labs: Laboratory Results - last 24 hr 10/22/23 10/22/23 10/22/23 14:23 14:24 18:29 MCV 85.4 MCH 29.3 MCHC 34.3 RDW 13.6 Plt Count 268 MPV 9.4 Immature Gran % (Auto) 0.5 H Neut % (Auto) 81.9 H Lymph % (Auto) 13.6 L [place] % (Auto) 3.9 Eos % (Auto) 0.0 Baso % (Auto) 0.1 Lymph # (Auto) 1.4 [place] # (Auto) 0.4 Eos # (Auto) 0.0 Baso # (Auto) 0.0 Abs Immat Gran (auto) 0.05 H Absolute Neuts (auto) 8.2 Absolute Nucleated RBC 0.000 Nucleated RBC % (auto) 0.0 PT 10.8 L INR 0.9 APTT 27.1 D-Dimer High Sensitivty < 150 Anion Gap 14 Estim Creat Clear Calc 55.1 Estimated GFR > 60 Random Glucose 94 Calcium 9.4 D Magnesium 2.2 Total Bilirubin 0.5 Direct Bilirubin 0.2 AST 14 ALT 16 Alkaline Phosphatase 60 Troponin I High Sens < 2.7 < 2.7 Total Protein 7.5 Albumin 4.2 Lipase 23 Imaging Radiologist's Impressions: Impressions Chest X-Ray 10/22/23 14:56 IMPRESSION: Unremarkable examination. Head CT 10/22/23 15:09 IMPRESSION: No acute intracranial pathology. Assessment and Plan (1) Hypertensive urgency: Status: Acute Plan Pt is a 68-year-old female with a PMH significant for?insomnia and osteoarthritis in right knee who presents to the ED for evaluation of headache, chest pain, lightheadedness, and dizziness. Pt will be admitted to the hospital for treatment further evaluation of hypertensive urgency. Hypertensive urgency Patient's BP as high as 231/111 in the ED Patient symptomatic with headache, chest pressure, diaphoresis, lightheadedness, dizziness Patient previously on antihypertensives some years ago Patient given labetalol 20 mg IV and losartan 50 mg p.o. in the ED good effect Currently at 182/89; goal is <160/100 in the next 2-4 hours and then normalized in the next 1-2 days Will start on losartan 50 mg p.o. and amlodipine 5 mg p.o. daily Monitor BP closely Monitor on telemetry Osteoarthritis Follow up outpatient with ortho Insomnia Moose Camacho Full Code Attending:?Dr. Clark DVT Prophylaxis: Lvoenox Pt will require a hospitalization of at least two nights for treatment of?symptomatic hypertensive urgency. Due to the need to slowly lower patient's blood pressure over a matter hours to days, patient will require hospitalization for close monitoring of vitals and BP, and administration of antihypertensives. Quality Stroke Does the patient have a stroke diagnosis?: No VTE Prior VTE?: No VTE Risk Level:: Medical - moderate - high VTE Device Contraindication: Treatment Not Indicated VTE Drug Contraindication: N/A - Med Ordered
[2023-10-22] MEDS: Enoxaparin Sodium 40 MG/0.4 ML SYRINGE SUBCUT (20:51)
[2023-10-22] MEDS: amLODIPine Besylate 5 MG TABLET PO (20:51)
[2023-10-23 00:12] VITALS: BP 151/73; PULSE 65; RESP 14; TEMP 36.6; O2SAT 98
[2023-10-23 07:06] LABS: Hematocrit 42.4 % (37.0-47.0); Hemoglobin 14.3 g/dl (12.0-16.0); Mean Corpuscular HGB Conc 33.7 g/dl (31.0-35.0); Mean Corpuscular Hemoglobin 29.1 pg (27.0-33.0); Mean Corpuscular Volume 86.2 fL (80.0-98.0); Platelet Count 314 X10*3/uL (160-400); Red Blood Count 4.92 X10*6/uL (4.20-5.50); Red Cell Distribution Width 13.8 % (11.0-16.0); White Blood Count 8.5 X10*3/uL (4.8-10.8)
[2023-10-23 07:08] VITALS: BP 147/81; PULSE 62; RESP 16; TEMP 36.8; O2SAT 98
[2023-10-23 07:11] LABS: Anion Gap 18 (12-20); Blood Urea Nitrogen 18 mg/dL (9-16); Calcium 9.4 mg/dL (8.4-10.2); Carbon Dioxide 21 mmol/L (22-29); Chloride 100 mmol/L (96-108); Creatinine Clr Calc Pharmacy 63.1; Estimated Glomerular Filt Rate > 60; Glucose Random 105 mg/dL (60-115); Potassium 4.1 mmol/L (3.3-5.1); Sodium 135 mmol/L (135-145)
[2023-10-23 07:18] VITALS: BP 151/80; PULSE 62; RESP 16; TEMP 36.8; O2SAT 99
[2023-10-23 07:20] LABS: Troponin-I High Sensitivity < 2.7 ng/L (<3.5-17.0)
--- NOTE | 2023-10-23 07:54 | PC.NURSE ---
patient is sitting up eating breakfast, alert and oriented x4, respirations equal and unlabored, skin dry and intact, VSS
--- NOTE | 2023-10-23 08:48 | PHA.MEDREC ---
Pharmacy Consult ? Medication Reconciliation Pharmacy has completed the medication reconciliation. spoke with patient to confirm medications. She reports all are as needed except for the zolpidem.
--- NOTE | 2023-10-23 09:02 | PM.DS ---
DS: Providers Provider Date of Service: 10/23/23 Date of admission: 10/22/23 19:55 Primary care physician: Bassem Otero III, MD DS: Diagnosis Discharge Diagnosis (1) Hypertensive urgency: Status: Acute DS: Summary Hospital Course Hospital Course: History and physical as per admitting provider. Pt is a 68-year-old female with a PMH significant for?insomnia and osteoarthritis in right knee who presents to the ED for evaluation of headache, chest pain, lightheadedness, and dizziness. Patient reports symptoms began 3 days prior on Tuesday when she went to Orthopedics for a cortisone shot in her right knee. At the office they noticed her blood pressure was high. On patient felt diaphoretic, had a headache, some lightheadedness and dizziness, and central chest pressure. Symptoms persisted but did not repeat her BP until earlier today when she visited her mother at a long-term and asked the nurse to check it. Found that it was 179/100. Repeat one hour later was 197/100. Called Urgent Care who told her to come to the ED for further evaluation. Patient reports she follows regularly with a PCP. States a few years ago blood pressure was also found to be elevated and she was started medication. Reports blood pressure improved on medication, though prescription apparently was never refilled and patient thought her hypertension had been resolved. In the ED pt was hypertensive up to 231/111. Labs were grossly unremarkable. No leukocytosis. Stable H&H. No significant electrolyte abnormalities. Renal and hepatic function WNL. Serial troponins negative. CXR was unremarkable with no acute cardiopulmonary disease visualized. CT?of head showed no acute intracranial pathology. EKG demonstrated normal sinus rhythm without evidence of significant ST elevations or depressions. Pt was treated with labetalol 20 mg IV and losartan 50 mg p.o. Pt will be admitted to the hospital for treatment further evaluation of hypertensive urgency. [age] year woman treated for hypertensive urgency. Blood pressure as high as 231/111 in the ED. patient was symptomatic with headache, chest pressure, diaphoresis, lightheadedness and dizziness. Patient previously on antihypertensives years ago although she reports that she never was prescribed them. She was treated with IV labetalol and losartan in the ER with good reduction of blood pressure. Blood pressure has so far remained stable on losartan 50 mg and amlodipine 5 mg. She will continue taking these on a daily basis. He was encouraged to obtain a blood pressure monitor and document blood pressures to share with her primary care provider to adjust medications as necessary. Plan is to discharge patient home when patient is in agreement with this. All symptoms have resolved. Insomnia. Continue Ambien Time Attestation Discharge Coordination Time (in mins): 36 Quality: Safe Use of Opioids Does Pt have an Active Cancer Diagnosis on the Problem List?: No Quality: Stroke Does the patient have a stroke diagnosis?: No Physical Exam Vital Signs: Vital Signs: Last Vital Signs Temp 98.2 F 10/23/23 07:18 Pulse 62 10/23/23 07:18 Resp 16 10/23/23 07:18 BP 151/80 H 10/23/23 07:18 Pulse Ox 99 10/23/23 07:18 O2 Del Method Room Air 10/23/23 07:18 BMI result Body Mass Index 34.8 Appearing in no acute distress head is normocephalic atraumatic eyes pupils are PERRLA sclera is anicteric mouth throat mucous membranes are intact and moist neck is supple no lymphadenopathy, no JVD noted lung sounds are clear to auscultation heart regular rate rhythm, clear S1, S2 positive bowel sounds, abdomen is soft, nontender neuro patient is alert x3, no focal deficits DS: Data Data Completed and Pending Labs on day of discharge: Laboratory Results - last 24 hr 10/22/23 10/22/23 10/22/23 14:23 14:24 18:29 WBC 10.0 RBC 4.74 Hgb 13.9 Hct 40.5 MCV 85.4 MCH 29.3 MCHC 34.3 RDW 13.6 Plt Count 268 MPV 9.4 Immature Gran % (Auto) 0.5 H Neut % (Auto) 81.9 H Lymph % (Auto) 13.6 L [place] % (Auto) 3.9 Eos % (Auto) 0.0 Baso % (Auto) 0.1 Lymph # (Auto) 1.4 [place] # (Auto) 0.4 Eos # (Auto) 0.0 Baso # (Auto) 0.0 Abs Immat Gran (auto) 0.05 H Absolute Neuts (auto) 8.2 Absolute Nucleated RBC 0.000 Nucleated RBC % (auto) 0.0 PT 10.8 L INR 0.9 APTT 27.1 D-Dimer High Sensitivty < 150 Sodium 135 Potassium 3.8 Chloride 99 Carbon Dioxide 26 Anion Gap 14 BUN 22 H Creatinine 0.87 Estim Creat Clear Calc 55.1 Estimated GFR > 60 Random Glucose 94 Calcium 9.4 D Magnesium 2.2 Total Bilirubin 0.5 Direct Bilirubin 0.2 AST 14 ALT 16 Alkaline Phosphatase 60 Troponin I High Sens < 2.7 < 2.7 Total Protein 7.5 Albumin 4.2 Lipase 23 10/23/23 05:44 WBC 8.5 RBC 4.92 Hgb 14.3 Hct 42.4 MCV 86.2 MCH 29.1 MCHC 33.7 RDW 13.8 Plt Count 314 MPV 10.0 Immature Gran % (Auto) Neut % (Auto) Lymph % (Auto) [place] % (Auto) Eos % (Auto) Baso % (Auto) Lymph # (Auto) [place] # (Auto) Eos # (Auto) Baso # (Auto) Abs Immat Gran (auto) Absolute Neuts (auto) Absolute Nucleated RBC 0.000 Nucleated RBC % (auto) 0.0 PT INR APTT D-Dimer High Sensitivty Sodium 135 Potassium 4.1 Chloride 100 Carbon Dioxide 21 L Anion Gap 18 BUN 18 H Creatinine 0.76 Estim Creat Clear Calc 63.1 Estimated GFR > 60 Random Glucose 105 Calcium 9.4 Magnesium Total Bilirubin Direct Bilirubin AST ALT Alkaline Phosphatase Troponin I High Sens < 2.7 Total Protein Albumin Lipase Discharge Plan Discharge Anticipated Discharge Date/Time: 10/23/23 09:00 Patient Disposition: Home, Self-Care Discharge Diagnosis: Hypertensive urgency Headache Chest pain Referrals: Bassem Otero III, MD [Primary Care Provider] - 1 Week Discharge Medications: New losartan 50 mg Tablet 50 mg PO DAILY Qty: 30 0RF Protocol: Hold for SBP< HOLD for SBP < : 90 amlodipine 5 mg Tablet 5 mg PO DAILY Qty: 30 0RF Protocol: Hold for SBP< HOLD for SBP < : 90 (DME) blood pressure monitor Kit See Rx Instructions .Route Qty: 1 0RF Rx Instructions: As directed Continued omeprazole 40 mg capsule,delayed release(DR/EC) 40 mg PO DAILY PRN (Reason: Acid Reflux) zolpidem 5 mg tablet 5 mg PO BEDTIME fluticasone propionate 50 mcg/actuation spray,suspension 2 spray intranasal DAILY PRN (Reason: Allergy Symptoms) loratadine 10 mg tablet 10 mg PO DAILY PRN (Reason: Allergy Symptoms) clobetasol 0.05 % foam 1 appl topical QD-BID PRN (Reason: Itching) Rx Instructions: APPLY DAILY TO TWICE A DAY TO ITCHY PATCHES ON SCALP NEEDED Discharge Orders: Discharge Order (Routine); Ordered 10/23/23 Ordered By: Leila Espinal Diet: Advance to usual diet Activity on Discharge: As tolerated Stand Alone Forms: Patient Portal Discharge page Print Language: Frisian Care Plan Goals: Monitor blood pressures daily and document to share with your primary care provider for purposes of medication adjustment Health Concerns: Hypertensive urgency Headache Chest pain Plan of Treatment: Follow-up with primary care provider Take all medications as prescribed Assessment: Treated for hypertensive urgency with symptoms of headache and chest pain. Started on new antihypertensive medications with decrease in blood pressure.
[2023-10-23] MEDS: amLODIPine Besylate 5 MG TABLET PO (09:41)
[2023-10-23] MEDS: Losartan Potassium 50 MG TABLET PO (09:41)
--- NOTE | 2023-10-23 09:47 | PC.NURSE ---
patient medicated per JUL, ambulated to the bathroom with steady gait.
--- NOTE | 2023-10-23 10:17 | MHC.CM.PN ---
CM met with Patient at bedside, in the ED and addressed IMM with her, providing Patient with the original and a copy will be placed on the chart. Patient will be calling her Son for transport.
[2023-10-23 11:19] VITALS: BP 146/82; PULSE 69; RESP 16; TEMP 36.8; O2SAT 99
== END 2023-10-23 11:33 | disposition home or self-care (01) | DRG 305 ==
LOC: HO.ED 18:09 → HO.EDOVER 21:04
PROVIDERS: Physician Assistant Medical; Admitting Provider Student in an Organized Health Care Education/Training Program; Emergency Provider Internal Medicine; PCP Internal Medicine; Visit Provider Nurse Practitioner Acute Care
DX: I16.0 Hypertensive urgency (principal); M17.11 Unilateral primary osteoarthritis, right knee; G47.00 Insomnia, unspecified; Z79.899 Other long term (current) drug therapy
CPT/HCPCS: 36415; 70450; 71046; 80048; 80076; 83690; 83735; 84484; 85025; 85027; 85379; 85610; 85730; 93005; 99285; J1650; J1920

== ENCOUNTER → 2023-10-22 14:01 | Outpatient (BNV) | payer MEDICARE, OTHER, SELFPAY | PROVIDERS: Admitting Provider Student in an Organized Health Care Education/Training Program; Emergency Provider Internal Medicine; PCP Internal Medicine; Visit Provider Internal Medicine Cardiovascular Disease | DX: R07.9 Chest pain, unspecified (principal) | CPT/HCPCS: 93010 ==

== ENCOUNTER → 2023-10-22 19:55 | Outpatient (BNV) | payer MEDICARE, OTHER, SELFPAY | PROVIDERS: Admitting Provider Student in an Organized Health Care Education/Training Program; Emergency Provider Internal Medicine; PCP Internal Medicine; Visit Provider Student in an Organized Health Care Education/Training Program | DX: I16.0 Hypertensive urgency (principal) | CPT/HCPCS: 99223; 99239 ==

== ENCOUNTER 2024-08-29 13:57 | Outpatient (RCR) | payer MEDICARE, OTHER, SELFPAY | END 2024-10-31 09:00 | disposition home or self-care (01) | LOC: HO.PT 13:57 | PROVIDERS: PCP Internal Medicine; Visit Provider Orthopaedic Surgery Foot and Ankle Surgery | DX: M43.16 Spondylolisthesis, lumbar region (principal) | CPT/HCPCS: 97110; 97140; 97161 ==